=== PATIENT | male | born 2000 | race Caucasian/White ===

== ENCOUNTER 2021-06-01 19:57 | Emergency (ER) | payer OTHER, SELFPAY ==
[2021-06-01 19:58] VITALS: BP 151/98; PULSE 100; RESP 16; TEMP 36.2; O2SAT 98; BMI 38.0
--- NOTE | 2021-06-01 20:10 | RAD_ITS ---
STUDY: X-RAY - LEFT FOOT CLINICAL: Male, 20 years old. Pt stepped on nail tonight. TECHNIQUE: 3 view(s) of the foot. COMPARISON: None. FINDINGS: Normal talus, calcaneus, and tarsal bones. Normal visualized subtalar, talonavicular, calcaneocuboid, tarsal and tarsometatarsal articulations. Normal metatarsi. No radiopaque foreign body is seen. Normal metatarsophalangeal joint of the great toe. Normal tibial and fibular sesamoid bones. Normal interphalangeal joint of the great toe. Normal phalanges of the great toe. Normal second through fifth metatarsophalangeal joints. Normal interphalangeal joints and phalanges of the lesser toes. The soft tissue structures are unremarkable. There is no demonstrated fracture. RAD/Foot min 3 Views IMPRESSION: Normal x-ray examination of the foot. Electronically Signed: Larry Mendes MD at 20:59 EDT , Service support ,
--- NOTE | 2021-06-01 22:31 | ED.VIS.LOWEX ---
HPI History of Present Illness Chief Complaint: Lower Extremity Injury Detail of Chief Complaint: Puncture wound plantar surface left foot Informant: patient and parent Occured/Mechanism Mechanism/Context: Yes injury Comment: Puncture wound plantar surface left foot Onset/Context/Timing Context: Sudden Onset Timing: Continuous Quality of Pain: Sharp Location: Plan for his left foot Current Severity: 1/10 Maximum Severity: 8/10 Worsened by: Palpation and weightbearing Relieved by: Elevation and rest Associated Symptoms Associated Symptoms: Negative for Parasthesia, Weakness and Loss of Funtion Narrative Narrative: Patient was wearing shoes. He stepped on a nail that went through the shoe and into the plantar surface of his left foot. He has no allergies. He has no medical problems. He is on no immunosuppressive meds. There is no his rheumatic fever, heart murmur, SBE. He denies paresthesia, anesthesia or motor weakness. Tetanus is up-to-date. Tetanus Immunization: <5 years Prior similar symptoms: No Recent Illness/Hospitalization: No PFSH PFSH no medical history Home Medications cephalexin 500 mg PO Q6 #12 capsule 06/01/21 [Rx Last Taken Unknown] ciprofloxacin HCl 500 mg PO BID #6 tablet 06/01/21 [Rx Last Taken Unknown] Allergy/AdvReac Type Severity Reaction Status Date / Time prednisone Allergy Hives Verified 06/01/21 20:01 no surgical history Social History (Updated 06/01/21 @ 22:[address] Bernabe Gonzalez MD) household members: family Smoking Status: Never smoker alcohol intake: never substance use type: does not use ROS ROS ED Gastrointestinal Gastrointestinal: Denies nausea or vomiting Musculoskeletal Musculoskeletal: Denies arthralgias, back pain, myalgias or neck pain Integumentary Reports other Details: Puncture wound plantar surface left foot ; Denies abscess, Abrasions or rash Neurologic Neurologic: Denies paresthesias or weakness Hematologic/Lymphatic Hematologic/Lymphatic: Denies easy bleeding or easy bruising EXAM Physical Exam Const Vital Signs: 06/01/21 19:58 Temperature 97.2 F L Temperature Source Temporal Pulse Rate 100 Respiratory Rate 16 Blood Pressure 151/98 H Blood Pressure Mean 115 Pulse Ox 98 Oxygen Delivery Method Room Air Positive well nourished, well developed and obese General Appearance ED: well developed Nutritional Appearance: obese HEENT normocephalic Eyes PERRL Eyes Narrative: Extract muscles are intact. Neck full ROM Resp normal respiratory effort Cardio regular rate and regular rhythm Extremity full ROM; Negative for normal to inspection Extremity Narrative: Patient has a puncture wound plantar surface of the left foot between the third and fourth metatarsal head. There is an open wound. There is no foreign body noted. DP and PT pulse are palpable. He is able to move all his toes. There is no subungual hematoma noted. There is no evidence of infection. There is no drainage. General Extremety ED: Yes weight-bearing difficulty; Negative for cyanosis or edema General Extremity: weight-bearing difficulty; Negative for cyanosis or edema Neuro oriented x3, CN's II-XII intact bilaterally and no sensory deficits noted Sensorium / Orientation: alert Motor Exam: strength 5/5 throughout Psych mental status grossly normal Skin Lesions: no lesions Rashes: no rashes Trauma: puncture MDM MDM MDM Narrative Medical decision making narrative: Per nursing protocol x-ray was ordered which was appropriate to rule out foreign body. No foreign body was noted on my review. There is no bony abnormality noted either. Since patient has a puncture wound that is open and does not appear infected will have wound cleansed and will place on antibiotic for Pseudomonas coverage since nail went through bottom of shoe. Radiography Diagnostic Testing: Radiology Impression Foot X-Ray 06/01/21 20:10 IMPRESSION: Normal x-ray examination of the foot. Electronically Signed: Larry Mendes MD at 20:59 EDT , Service support , Discharge Plan Triage Chief Complaint: Lower Extremity Injury ED Provider: Bernabe Gonzalez Dx/Rx/DC Orders Clinical Impression: Puncture wound of foot without foreign body Instructions: ED Puncture Wound (Foot) Prescriptions: New ciprofloxacin HCl [ciprofloxacin HCl] 500 MG tablet 500 mg PO BID Qty: 6 RF: 0 cephalexin [cephalexin] 500 MG capsule 500 mg PO Q6 Qty: 12 RF: 0 Primary Care Provider: Jeovany Diaz Referrals: Jeovany Diaz MD [Primary Care Provider] - 2 Days for wound check (Puncture wound plantar surface left foot) Disposition Disposition: Home, Self Care
[2021-06-01] MEDS: Cephalexin 250 MG Capsule 500 MG PO (23:14)
[2021-06-01] MEDS: Ciprofloxacin 250 MG Tablet 500 MG PO (23:14)
== END 2021-06-01 23:18 | disposition home or self-care (01) ==
PROVIDERS: Emergency Provider Emergency Medicine; PCP Family Medicine
DX: S91.332A Puncture wound without foreign body, left foot, initial encounter (principal); W45.0XXA Nail entering through skin, initial encounter; Y93.9 Activity, unspecified; Y92.9 Unspecified place or not applicable
CPT/HCPCS: 73630; 99283

== ENCOUNTER 2024-02-12 19:35 | Emergency (ER) | payer OTHER, SELFPAY ==
[2024-02-12 19:36] VITALS: BP 150/94; PULSE 102; RESP 18; TEMP 35.9; O2SAT 98; BMI 41.5
--- NOTE | 2024-02-12 20:19 | US_ITS ---
EXAM: US SCROTUM CLINICAL INDICATION: testicular trauma TECHNIQUE: Realtime ultrasound of the testicles was performed with grayscale and Color Doppler analysis. COMPARISON: No relevant prior studies available. FINDINGS: RIGHT TESTICLE: No significant abnormality. Normal in size and echotexture. No focal lesion. Normal blood flow is present. The right testicle measures 4.0 x 3.0 x 2.5 cm. LEFT TESTICLE: No significant abnormality. Normal in size and echotexture. No focal lesion. Normal blood flow is present. The left testicle measures 4.0 x 3.0 x 2.6 cm. EPIDIDYMIDES: 2 mm left epididymal head cyst. Normal color Doppler flow pattern in the epididymis. SCROTUM: Small right hydrocele. Small left hydrocele. US/Testicular with Arterial Flow IMPRESSION: Small bilateral hydrocele. No intratesticular pathology is identified. Electronically Signed: Rick Lizarraga DO at 21:27 EDT ,
--- NOTE | 2024-02-12 20:19 | EX.ED.GUMALE ---
HPI History of Present Illness Chief Complaint: Male Pain/Injury PFSH PFS Home Medications cephalexin 500 mg capsule 500 mg PO Q6 #12 CAPSULES 06/01/21 [Rx Last Taken Unknown] ciprofloxacin HCl 500 mg tablet 500 mg PO BID #6 TABLETS 06/01/21 [Rx Last Taken Unknown] Allergy/AdvReac Type Severity Reaction Status Date / Time prednisone Allergy Hives Verified 02/12/24 19:36 Social History (Updated 06/01/21 @ 22:[address] Bernabe Gonzalez MD) household members: family Smoking Status: Never smoker alcohol intake: never substance use type: does not use EXAM Physical Exam Const Vital Signs: 02/12/24 19:36 02/12/24 22:14 Temperature 96.7 F L 98 F Temperature Source Temporal Pulse Rate 102 H 97 Respiratory Rate 18 16 Blood Pressure 150/94 H 141/91 H Blood Pressure Mean 112 107 Pulse Ox 98 97 Oxygen Delivery Method Room Air MDM MDM MDM Narrative Medical decision making narrative: HISTORY OF PRESENT ILLNESS: 23-year-old male presents with concern for testicular trauma. Notes his dog caused some trauma to his testicle just prior to arrival. REVIEW OF SYSTEMS: Pertinent positives: Testicular pain Pertinent negatives: Trouble urinating PHYSICAL EXAM: Nursing triage notes reviewed, Vital signs reviewed Constitutional: please see mdm HENT: MMM Eyes: Pupils equal round and reactive to light, Extraocular muscles intact Neck: No stridor, no JVD, full neck ROM Lungs: Clear to auscultation, No wheezing or rales. No increased work of breathing, no conversational dyspnea, no accessory muscle use, no nasal flaring. No respiratory distress noted Heart: Regular rate and rhythm, No murmurs, No rubs and No gallops, 2+ distal pulses (radial, femoral, posterior tibial) in all extremities Abdomen: Soft, there is no tenderness, rigidity, rebound or guarding, no obvious peritoneal signs, no palpable pulsatile abdominal masses, no auscultated abdominal bruit : No CVAT, normal testicular lie, intact hemostatic reflex, no tenderness to palpation, no swelling, no lesions, no urethral discharge Extremities: No edema Neuro: No focal neurological deficits, cranial nerves II through XII intact, 5/5 strength in all extremities. Intact sensation to light touch in all extremities, 2+ reflexes bilateral patella tendons. Normal gait. No ataxia. Skin: No rash or lesions noted MEDICAL DECISION MAKING: Chief Complaint: Testicular pain External records reviewed: No recent advanced imaging of the testicle Factors affecting care: none Social determinants of health: none History obtained from others: none Consults: none MDM Narrative: Patient was hemodynamically stable, afebrile and nontoxic-appearing. Exam without significant abnormalities. No signs of obvious trauma. I considered the following differential diagnosis: Testicular torsion, testicular trauma, testicular hemorrhage, ALL IMAGES (IF OBTAINED) HAVE BEEN PERSONALLY REVIEWED AND INTERPRETED BY MYSELF. Testicular ultrasound shows no evidence of significant trauma or injury or torsion. Shows bilateral hydroceles. Will recommend NSAIDs and urology follow-up. The patient and/or family, caregivers express understanding. The patient and/or family, caregivers agrees with the plan. Shared decision making: I will have a discussion with the patient and or visitors regarding risk/benefits of further testing or admission. They will be made aware of of the risk/benefits inherent in this decision they will be given the opportunity to voice understanding. Total critical care time today provided was at least 0 minutes. This excludes separately billable procedures. Critical care time (if documented) is secondary to the patient having high probability of clinically significant/life threatening deterioration in the patient's condition which required my urgent intervention. Impression: 1. Testicular pain 2. Testicular contusion Dispo: Discharge home This note was generated with [employer] dictation software. It may contain incorrect words, spelling, and punctuation that were not noted in review of the chart prior to signing. Radiography Diagnostic Testing: Clinical Impression(s) from Imaging Studies Testicular Ultrasound 02/12/24 20:19 IMPRESSION: Small bilateral hydrocele. No intratesticular pathology is identified. Electronically Signed: Rick Lizarraga DO at 21:27 EDT , Discharge Plan Triage Chief Complaint: Male Pain/Injury ED Provider: Arya Solano Dx/Rx/DC Orders Instructions: ED Hydrocele Non-Communicating Type, ED Contusion Testicles Scrotum Prescriptions: No Action ciprofloxacin HCl [ciprofloxacin HCl] 500 MG tablet 500 mg PO BID Qty: 6 0RF cephalexin [cephalexin] 500 MG capsule 500 mg PO Q6 Qty: 12 0RF Primary Care Provider: Jeovany Diaz Referrals: Jeovany Diaz MD [Primary Care Provider] - Graham Otero MD [Med Staff - Active Staff] - Activity Restrictions/Additional Instructions: Thank you for trusting us with your care today! Please take Tylenol (2 pills, 650 mg), ibuprofen (2 pills, 400 mg) every 6 hours as needed for pain and fever control. Please return to the emergency department if your symptoms change or worsen. Please follow with your primary care physician for further outpatient evaluation and management. Disposition Disposition: Home, Self Care Discharge Date/Time: 02/12/24 22:18
[2024-02-12 22:14] VITALS: BP 141/91; PULSE 97; RESP 16; TEMP 36.6; O2SAT 97
== END 2024-02-12 22:18 | disposition home or self-care (01) ==
PROVIDERS: Emergency Provider Emergency Medicine; PCP Family Medicine; Visit Provider Emergency Medicine
DX: S30.22XA Contusion of scrotum and testes, initial encounter (principal); N43.3 Hydrocele, unspecified; N50.819 Testicular pain, unspecified; X58.XXXA Exposure to other specified factors, initial encounter
CPT/HCPCS: 76870; 93976; 99282